=== PATIENT | male | born 1970 | race Caucasian/White ===

== ENCOUNTER 2023-12-17 14:01 | Emergency (ER) | payer OTHER, SELFPAY ==
[2023-12-17 14:18] VITALS: BP 140/80; PULSE 98; RESP 16; TEMP 36.3; O2SAT 98
--- NOTE | 2023-12-17 14:27 | ED.DENTAL ---
HPI - Dental/Oral General Chief complaint: Dental/Oral Stated complaint: Tooh Ache Time Seen by Provider: 12/17/23 14:27 Source: patient, RN notes reviewed and old records reviewed Mode of arrival: ambulatory Limitations: no limitations History of Present Illness HPI Narrative: patient presents today with complaints right-sided dental pain. He reports that pain is on the lower right side. He reports that it began about 4 or 5 days ago as annoyance, but by yesterday caused actual pain. Today he awakened with mild right-sided facial swelling. the swelling does not extend into the neck. Pain has been well controlled with [id number] pain relievers. Worse with eating. Patient is able to swallow and manage her own secretions without difficulty. No drooling or stridor. Denies any injury or trauma. Voices no other concerns or complaints at this time. He is visiting from out of town, reports that when he gets back home to [place] he has a dental appointment with his dentist scheduled Related Data Home Medications Medication Instructions Recorded Confirmed citalopram 20 mg tablet 20 mg PO DAILY 12/17/23 12/17/23 diphenoxylate-atropine 2.5 1 tablet PO QID 12/17/23 12/17/23 mg-0.025 mg tablet testosterone cypionate 200 mg/mL See Rx Instructions .Route .COMPLEX 12/17/23 12/17/23 intramuscular oil Allergies Allergy/AdvReac Type Severity Reaction Status Date / Time No Known Allergies Allergy Verified 12/17/23 14:03 Review of Systems Review of Systems: All systems reviewed & are unremarkable except as noted in HPI and below Constitutional: Constitutional: Reports no additional constitutional complaints ENT: Reports system reviewed and no additional complaints, except as documented, Reports as per HPI, Reports facial pain and Reports mouth pain Cardiovascular: Cardiovascular: Reports no additional cardiovascular complaints Respiratory: Respiratory: Reports no additional respiratory complaints Gastrointestinal: Gastrointestinal: Reports no additional gastrointestinal complaints PMFSH Comments At the time of my signature, I reviewed and agree with the nursing past medical, surgical, social, and family history. There is no relevant family history pertinent to the patient complaint. Exam Const: General: cooperative, no acute distress, alert and awake Orientation/consciousness: oriented to person, oriented to place and oriented to time HENMT: Head: normal to inspection Ears: TM's normal bilaterally Mouth: Yes moist mucous membranes Teeth and gingiva: gingiva abnormal edematous, diffusely erythematous and tender Other: right lower gingiva inflamed, no defined abscess noted Resp: Effort & Inspection: normal respiratory effort and able to speak in complete sentences Auscultation: clear to auscultation bilaterally, no crackles, no rales, no rhonchi and no wheezes Cardio: Palpation: normal PMI Rate: regular rate Rhythm: regular rhythm Heart sounds: S1 normal heart sound present and S2 normal heart sound present Neuro: General: oriented to person, oriented to place and oriented to time Cranial nerves: Yes CN's II-XII intact bilaterally Psych: Appearance: grossly normal Thought process: Normal thought process present Insight: Good insight present (Psych) Judgement: Good judgement present (Psych) Course Course Level of Care: Express Care Visit Vital Signs Vital signs: Vital Signs Temperature 97.4 F L 12/17/23 14:18 Pulse Rate 98 12/17/23 14:18 Respiratory Rate 16 12/17/23 14:18 Blood Pressure 140/80 12/17/23 14:18 Pulse Oximetry 98 12/17/23 14:18 Oxygen Delivery Room Air 12/17/23 14:18 Temperature 97.4 F L 12/17/23 14:18 Pulse Rate 98 12/17/23 14:18 Respiratory Rate 16 12/17/23 14:18 Blood Pressure 140/80 12/17/23 14:18 Pulse Oximetry 98 12/17/23 14:18 Oxygen Delivery Room Air 12/17/23 14:18 Reviewed MDM - Dental/Oral MDM Narrative Medical deci
== END 2023-12-17 14:35 | disposition home or self-care (01) ==
PROVIDERS: Emergency Provider Nurse Practitioner Family
DX: K04.7 Periapical abscess without sinus (principal)
CPT/HCPCS: 99203; G0463